=== PATIENT | female | born 1985 | race African-American/Black ===

== ENCOUNTER 2021-11-03 14:07 | Emergency (ER) | payer MEDICAID ==
[~2021-11-03] VITALS: Ht 170.2 cm; Wt 84.0 kg
[2021-11-03 15:30] LABS: BASOPHILS % 0.6 % (0.0-2.0); EOSINOPHILS % 0.2 % (0.0-5.0); HEMATOCRIT. 35.2 % (36.0-48.0); HEMOGLOBIN. 11.7 g/dL (12.0-16.0); LYMPHOCYTES % 27.2 % (20.0-50.0); MEAN CORPUSCULAR HEMOGLOBIN 27.1 pg (28.0-32.0); MEAN CORPUSCULAR VOLUME 81.6 fL (81.0-99.0); MEAN PLATELET VOLUME 8.6 fl (7.4-10.4); MONOCYTES % 5.9 % (2.0-8.0); NEUTROPHILS % 66.1 % (40.0-76.0); PLATELET 329 x1000/uL (130-400); RED BLOOD CELL COUNT 4.32 mill/uL (4.2-5.4); RED CELL DISTRIBUTION WIDTH 13.4 % (11.6-14.6)
[2021-11-03 15:32] LABS: CHLORIDE 106 mEq/L (98-107)
[2021-11-03 15:42] LABS: HCG SCREEN NEGATIVE
[2021-11-03] MEDS ORDERED: IOHEXOL-350 100 ML BOTTLE ONE (17:24)
[2021-11-03 18:30] VITALS: BP 128/78
== END 2021-11-03 18:47 | disposition home or self-care (01) ==
LOC: ER 14:07
DX: R07.81 Pleurodynia (principal); Z86.711 Personal history of pulmonary embolism
CPT/HCPCS: 36415; 71045; 71275; 80053; 83880; 84484; 84703; 85025; 85379; 93005; 99285; Q9967